=== PATIENT | female | born 1990 | race African-American/Black ===

== ENCOUNTER 2020-07-14 10:43 | Emergency (ER) | payer OTHER, SELFPAY ==
[2020-07-14 11:07] VITALS: BP 128/80; PULSE 75; RESP 20; TEMP 36.7; O2SAT 100
--- NOTE | 2020-07-14 11:10 | ED.URI ---
HPI - URI/Sore Throat General Chief Complaint: Upper Respiratory Infection Stated Complaint: I think we all have COVID Time Seen by Provider: 07/14/20 10:54 Source: patient Mode of arrival: ambulatory Limitations: no limitations History of Present Illness HPI Narrative: This is a 30-year-old female that presents the emergency department for cold symptoms x3 days. Reports sore throat, cough, congestion, rhinorrhea and sneezing. No known sick contacts. Denies fever or shortness of breath. Related Data Home Medications Medication Instructions Recorded Confirmed No Home Medications 07/14/20 07/14/20 Allergies Allergy/AdvReac Type Severity Reaction Status Date / Time No Known Allergies Allergy Verified 07/14/20 11:09 Review of Systems Review of Systems: Narrative: CONSTITUTIONAL: Denies fever ENT: Reports rhinorrhea, congestion, sore throat RESPIRATORY: Reports cough. Denies dyspnea. All systems reviewed & are unremarkable except as noted in HPI and below PMFSH Past Medical History Medical History (Updated 07/14/20 @ 12:17 by Mayuri Da Silva PA-C) No active medical problems Social History Social History (Updated 07/14/20 @ 11:11 by Mayuri Da Silva PA-C) Smoking status: Current every day smoker Gender identity (if verbalized by the patient): Female Exam Narrative: Exam Narrative: GENERAL: Well-appearing, well-nourished, and in no acute distress. HEAD: Normocephalic, atraumatic. EYES: EOMI. ENT: Nares clear, no rhinorrhea or epistaxis. Mucous membranes moist. Oropharynx without tonsillar hypertrophy exudate or other lesions. Bilateral TMs pearly castillo non-bulging NECK: Supple. No adenopathy or masses. CHEST: Clear to auscultation. No respiratory distress. No wheezes rales or rhonchi HEART: Regular rate and rhythm. No murmur heard. Normal peripheral pulses. EXTREMITIES: Normal range of motion. No edema. SKIN: Warm, dry, no rash. NEURO: No focal deficits. Alert and oriented x3. PSYCH: Normal mood and affect Course Vital Signs Vital signs: Vital Signs Temperature 98.0 F 07/14/20 11:07 Pulse Rate 75 07/14/20 11:07 Respiratory Rate 20 07/14/20 11:07 Blood Pressure 128/80 07/14/20 11:07 Pulse Oximetry 100 07/14/20 11:07 Temperature 98.0 F 07/14/20 11:07 Pulse Rate 75 07/14/20 11:07 Respiratory Rate 20 07/14/20 11:07 Blood Pressure 128/80 07/14/20 11:07 Pulse Oximetry 100 07/14/20 11:07 MDM - URI/Sore Throat MDM Narrative Medical decision making narrative: Patient presents the emergency department for cold symptoms x3 days. She is afebrile and nontoxic-appearing. Oxygen saturation is normal on room air. Lungs are clear on exam. Strep screen is negative. SARS-CoV-2 was sent. Patient was instructed on care of viral infection. She is to follow-up with primary care doctor. She was given warnings to return to the ER Lab Data Attestation: I reviewed the patient's lab results. Labs: Lab Results 07/14/20 Range/Units 11:50 SARS-CoV-2 RNA (RT-PCR) Pending Strep Screen Presumptive Negative *(Reference Range: Negative)* Critical Care Time Critical Care Time Critical Care Time: No Discharge Plan Discharge Clinical Impression: Person under investigation for severe acute respiratory syndrome coronavirus 2 (SARS-CoV-2) infection Patient Disposition: Home, Self-Care Condition: Stable Instructions: Viral Syndrome (ED), COVID-19 (Coronavirus Disease 2019) (ED) Additional Instructions: Return to the emergency department for worsening symptoms, or any other concerns Remain well-hydrated, get plenty of rest. Take Tylenol or Motrin [id number] for pain as needed. Flonase for nasal congestion. Zyrtec for runny nose. Lozenges or Chloraseptic spray for sore throat. You were tested today for coronavirus. It is important that you remain self isolated. Your results will likely be b
[2020-07-14 12:28] VITALS: BP 118/80; PULSE 80; RESP 20; O2SAT 100
[2020-07-15 19:19] LABS: SARS-CoV-2 RNA PCR Negative
== END 2020-07-14 12:48 | disposition home or self-care (01) ==
PROVIDERS: Physician Assistant; Emergency Provider Emergency Medicine
DX: J02.9 Acute pharyngitis, unspecified (principal); R05 Cough; Z20.822 Contact with and (suspected) exposure to COVID-19; F17.200 Nicotine dependence, unspecified, uncomplicated
CPT/HCPCS: 87081; 87880; 99283; C9803; U0003; U0005

== ENCOUNTER 2021-03-31 09:01 | Emergency (ER) | payer OTHER, SELFPAY ==
[2021-03-31 09:04] VITALS: BP 114/73; PULSE 70; RESP 16; TEMP 36.3; O2SAT 100
== END 2021-03-31 10:34 | disposition left against medical advice (07) ==
DX: M25.571 Pain in right ankle and joints of right foot (principal)
CPT/HCPCS: 99199